=== PATIENT | male | born 1960 | race Caucasian/White ===

== ENCOUNTER 2022-02-24 14:46 | Emergency (ER) | payer BC, OTHER ==
[~2022-02-24] VITALS: Ht 187 cm; Wt 133.3 kg
[2022-02-24] MEDS ORDERED: morphine INJ 10 MG/ML 1ML (SYR OR VIAL) IVP STA ×2 (15:04→16:38)
[2022-02-24] MEDS ORDERED: ONDANSETRON 4 MG/2 ML (SDV) Z0FRAN IVP ONE (15:15)
[2022-02-24 15:56] LABS: BASOPHILS % (AUTO) 1 % (0-10); EOSINOPHILS # (AUTO) 0.2 10^3/uL (0.0-0.3); EOSINOPHILS % (AUTO) 4 % (0-10); HEMATOCRIT 25 % (40-54); HEMOGLOBIN 7.9 g/dL (13.3-17.7); LYMPHOCYTES # (AUTO) 0.3 X 10^3 (1.0-4.0); LYMPHOCYTES % (AUTO) 8 % (12-44); MEAN CORPUSCULAR HEMOGLOBIN 30 pg (25-34); MEAN CORPUSCULAR HGB CONC 32 g/dL (32-36); MEAN CORPUSCULAR VOLUME 92 fL (80-99); MEAN PLATELET VOLUME 11.8 fL (9.0-12.2); MONOCYTES # (AUTO) 0.5 X 10^3 (0.0-1.0); MONOCYTES % (AUTO) 12 % (0-12); NEUTROPHILS # (AUTO) 2.9 X 10^3 (1.8-7.8); NEUTROPHILS % (AUTO) 75 % (42-75); PLATELET COUNT 120 10^3/uL (130-400); WHITE BLOOD COUNT 3.8 10^3/uL (4.3-11.0)
--- NOTE | 2022-02-24 16:03 | ED Lower Extremity ---
General Chief Complaint: Lower Extremity Stated Complaint: KNEE PAIN Nursing Triage Note: PT PRESENTS TO ED VIA EMS FROM SCENE WITH COMPLAINTS OF FALL FROM STANDING POSITION WHEN HE LOST HIS BALANCE. PT REPORTS BILAT KNEE PAIN. PT HAS ABRASION TO R KNEE AND R ELBOW. SWELLING NOTED TO L SORIANO. Source: patient, EMS Exam Limitations: no limitations History of Present Illness Date Seen by Provider: Feb 24, 2022 Time Seen by Provider: 15:10 Initial Comments Patient is a 62-year-old male who presents to the emergency department by ambulance today chief complaint of fall from standing. Patient states that he was walking with a cane and he has had progressive trouble with his right knee since a knee replacement a little less than a year ago. He had his right knee replaced at [facility] in [place]. He states the leg just "gave out". He went down forcefully on both knees. He was unable to get up on his own. Complains of an abrasion to the right elbow, abrasion to the right knee and severe pain in the right knee with limited mobility. Unknown last tetanus shot. History of chronic back pain. Did not hit his head, no loss of consciousness. No headache, neck pain. No new back pain. No extremity weakness or paresthesias. All other review of systems reviewed and negative except as stated Onset: just prior to arrival Severity: severe Pain/Injury Location: right knee Method of Injury: fell Modifying Factors: Improves With Immobilization; Worse With Movement Allergies and Home Medications Allergies Coded Allergies: No Known Drug Allergies (Unverified , 02/24/22) Patient Home Medication List Home Medication List Reviewed: Yes Allopurinol (Allopurinol) 300 Mg Tablet, (Reported) Entered as Reported by: SAPNA LAMAR on 02/24/221624 Last Action: New Order Cholecalciferol (Vitamin D3) (Vitamin D3) 1,250 Mcg (42520 Unit) Capsule, (Reported) Entered as Reported by: SAPNA LAMAR on 02/24/221624 Last Action: New Order Diclofenac Sodium (Diclofenac Sodium) 1 % Gel..gram., (Reported) Entered as Reported by: SAPNA LAMAR on 02/24/221624 Last Action: New Order Doxycycline Hyclate (Doxycycline Hyclate) 100 Mg Tablet, (Reported) Entered as Reported by: SAPNA LAMAR on 02/24/221624 Last Action: New Order Hydrochlorothiazide (Hydrochlorothiazide) 25 Mg Tablet, (Reported) Entered as Reported by: SAPNA LAMAR on 02/24/221624 Last Action: New Order Meloxicam (Meloxicam) 7.5 Mg Tablet, (Reported) Entered as Reported by: SAPNA LAMAR on 02/24/221624 Last Action: New Order Pantoprazole Sodium (Pantoprazole Sodium) 40 Mg Tablet., (Reported) Entered as Reported by: SAPNA LAMAR on 02/24/221624 Last Action: New Order Potassium Chloride (Potassium Chloride) 20 Meq Tab.er.prt, (Reported) Entered as Reported by: SAPNA LAMAR on 02/24/221624 Last Action: New Order Review of Systems Constitutional: see HPI EENTM: no symptoms reported Respiratory: no symptoms reported Cardiovascular: no symptoms reported Gastrointestinal: no symptoms reported Genitourinary: no symptoms reported Musculoskeletal: back pain (chronic), joint pain (right knee) Skin: other (skin abrasions) All Other Systems Reviewed Negative Unless Noted: Yes Past Ymqumux-Shpydp-Typfam Hx Patient Social History Tobacco Use?: No Substance use?: No Alcohol Use?: Yes Alcohol Frequency: Couple times a week Pt feels they are or have been: No Past Medical History Surgery/Hospitalization HX: chronic back pain, chronic knee pain, Physical Exam Vital Signs Vital Signs - First Documented 02/24/22 14:54 Temp 36.2 Pulse 97 Resp 16 B/P (MAP) 124/86 (99) Pulse Ox 98 Capillary Refill : Less Than 3 Seconds Height, Weight, BMI Height: '" Weight: lbs. oz. kg; 38.00 BMI Method: General Appearance: WD/WN, mild distress HEENT: PERRL/EOMI Neck: non-tender, full range of motion, normal inspection Cardiovascular: regular rate, rhythm, other (distal pulses bilateral LE intact; normal sensation) Respiratory: lungs clear, normal breath sounds, no respiratory distress, no accessory muscle use Gastrointestinal: non tender, soft Hips: bilateral hip non-tender, bilateral hip normal range of motion, bilateral hip no evidence of injury; right hip limited range of motion Legs: right leg non-tender, right leg normal inspection, right leg normal range of motion, right leg no evidence of injury; left leg soft tissue tenderness (large amount of swelling left leg. anterior - no open wounds/abrasions; mildly tender) Knees: left knee non-tender, left knee normal inspection, left knee normal range of motion, left knee no evidence of injury; right knee bone tenderness, right knee deformity, right knee joint effusion, right knee pain, right knee soft tissue tenderness, right knee swelling Ankles: bilateral ankle non-tender, bilateral ankle normal inspection, bilateral ankle normal range of motion, bilateral ankle no evidence of injury Feet: bilateral foot non-tender, bilateral foot normal inspection, bilateral foot normal range of motion, bilateral foot no evidence of injury Neurologic/Tendon: normal sensation, normal motor functions Neurologic/Psychiatric: alert, normal mood/affect, oriented x 3 Skin: normal color, warm/dry, other (abrasin right elbow; abrasion right anterior knee - over the patellar tendon) Progress/Results/Core Measures Results/Orders Lab Results Laboratory Tests Test 02/24/22 15:47 Range/Units White Blood Count 3.8 L 4.3-11.0 10^3/uL Red Blood Count 2.68 L 4.30-5.52 10^6/uL Hemoglobin 7.9 L 13.3-17.7 g/dL Hematocrit 25 L 40-54 % Mean Corpuscular Volume 92 80-99 fL Mean Corpuscular Hemoglobin 30 25-34 pg Mean Corpuscular Hemoglobin Concent 32 32-36 g/dL Red Cell Distribution Width 15.2 H 10.0-14.5 % Platelet Count 120 L 130-400 10^3/uL Mean Platelet Volume 11.8 9.0-12.2 fL Immature Granulocyte % (Auto) 0 % Neutrophils (%) (Auto) 75 42-75 % Lymphocytes (%) (Auto) 8 L 12-44 % Monocytes (%) (Auto) 12 0-12 % Eosinophils (%) (Auto) 4 0-10 % Basophils (%) (Auto) 1 0-10 % Neutrophils # (Auto) 2.9 1.8-7.8 X 10^3 Lymphocytes # (Auto) 0.3 L 1.0-4.0 X 10^3 Monocytes # (Auto) 0.5 0.0-1.0 X 10^3 Eosinophils # (Auto) 0.2 0.0-0.3 10^3/uL Basophils # (Auto) 0.0 0.0-0.1 10^3/uL Immature Granulocyte # (Auto) 0.0 0.0-0.1 10^3/uL Sodium Level 139 135-145 MMOL/L Potassium Level 4.2 3.6-5.0 MMOL/L Chloride Level 110 H 98-107 MMOL/L Carbon Dioxide Level 18 L 21-32 MMOL/L Anion Gap 11 5-14 MMOL/L Blood Urea Nitrogen 17 7-18 MG/DL Creatinine 1.17 0.60-1.30 MG/DL Estimat Glomerular Filtration Rate 71 BUN/Creatinine Ratio 15 Glucose Level 203 H 70-105 MG/DL Calcium Level 7.9 L 8.5-10.1 MG/DL My Orders Orders - FRANCO HERNANDEZ MD Knee, Right, 3 Views (02/24/22 15:01) Morphine Injection (Morphine Injection (02/24/22 15:04) Ondansetron Injection (Zofran Injectio (02/24/22 15:15) Ed Iv/Invasive Line Start (02/24/22 15:23) Cbc With Automated Diff (02/24/22 15:23) Basic Metabolic Panel (02/24/22 15:23) Ekg Tracing (02/24/22 15:23) Chest 1 View, Ap/Pa Only (02/24/22 15:23) Femur, Right, 2 Views (02/24/22 15:23) Tibia/Fibula, Left, 2 Views (02/24/22 16:06) Dipht,Pertuss(Acell),Tet Adult (Boostrix (02/24/22 16:15) Morphine Injection (Morphine Injection (02/24/22 16:38) Medications Given in ED Vital Signs/I&O 02/24/22 02/24/22 14:54 16:59 Temp 36.2 Pulse 97 91 Resp 16 18 B/P (MAP) 124/86 (99) 118/53 Pulse Ox 98 97 Blood Pressure Mean: 99 Progress Progress Note : Time: 16:05 Progress Note Patient states he feels better after pain medicine. I have spoken with Dr. Hanna ([id number]) at the emergency department at [facility]. He put me in contact with Dr. Marion their orthopedic surgeon on-call. Dr. Marion has agreed to take care of the patient's distal femur fracture. We are going to splint him in a position of comfort for transport Initial ECG Impression Date: Feb 24, 2022 Initial ECG Impression Time: 15:45 Initial ECG Rate: 92 Initial ECG Rhythm: Normal Sinus Initial ECG Intervals: Normal Initial ECG Impression: Normal Diagnostic Imaging Diagonstic Imaging: Xray Comments [facility] [place], [place] NAME: EMILE AVILA MED REC#: [id number] PT STATUS: REG ER : 1960 PHYSICIAN: FRANCO HERNANDEZ MD ADMIT DATE: 02/24/22/ER Draft Date of Exam:02/24/22 KNEE, RIGHT, 3 VIEWS INDICATION: Fracture. COMPARISON: Prior examination from 02/24/2022. FINDINGS: There is a comminuted fracture of the distal right femoral diaphysis just above the knee arthroplasty. Fracture is angulated anteriorly. There appears to be a small radiopaque foreign body along the medial aspect of the right thigh. IMPRESSION: 1. Comminuted, angulated fracture of the distal right femoral diaphysis just proximal to the knee arthroplasty component. 2. Small radiopaque foreign body along the medial soft tissues of the right distal thigh. Dictated on workstation # [id number] Dict: 02/24/22 1615 Trans: 02/24/22 1618 [facility] [id number] Interpreted by: NICOLA MENA MD Electronically signed by: Diagonstic Imaging: Xray Plain Films/CT/US/NM/MRI: chest Comments [facility], [place] NAME: EMILE AVILA [facility] REC#: [id number] PT STATUS: REG ER : 1960 PHYSICIAN: FRANCO HERNANDEZ MD ADMIT DATE: 02/24/22/ER Draft Date of Exam:02/24/22 CHEST 1 VIEW, AP/PA ONLY INDICATION: Fall. FINDINGS: There are postsurgical changes in the lower thoracic spine. Heart size is normal. Lungs are clear. There is no pleural effusion or pneumothorax. The mediastinum is unremarkable. IMPRESSION: No acute cardiopulmonary abnormality. Dictated on workstation # [id number] Dict: 02/24/22 1613 Trans: 02/24/22 1615 [facility] [id number] Interpreted by: NICOLA MENA MD Electronically signed by: Comments [facility] [place], [place] NAME: EMILE AVILA MED REC#: [id number] PT STATUS: REG ER : 1960 PHYSICIAN: FRANCO HERNANDEZ MD ADMIT DATE: 02/24/22/ER Draft Date of Exam:02/24/22 FEMUR, RIGHT, 2 VIEWS INDICATION: Pain. FINDINGS: There is a comminuted fracture of the distal right femoral diaphysis just above the knee arthroplasty. There is some acute angulation anteriorly. Proximal femurs intact. IMPRESSION: Comminuted, angulated fracture of the distal right femoral diaphysis, as described. Dictated on workstation # [id number] Dict: 02/24/22 1614 Trans: 02/24/22 1616 [facility] [id number] Interpreted by: NICOLA MENA MD Electronically signed by: Departure Impression Primary Impression: Fracture, femur, distal Qualified Codes: S72.401A - Unspecified fracture of lower end of right femur, initial encounter for closed fracture Additional Impressions: Abrasion of skin of right elbow abrasion of skin of right knee Contusion of left lower leg Qualified Codes: S80.12XA - Contusion of left lower leg, initial encounter history of Osler ray Rendu Anemia Qualified Codes: D64.9 - Anemia, unspecified Disposition: 02 XFER SHT-TRM HOSP Condition: Stable Transfer Transfer Reason: Patient preference Time Spoke to Accepting Phy: 15:47 Transfer Progress Notes Discussed with Dr Hanna (ER) and Dr Miranda (Ortho) Transfer Facility: [place], [place] Method of Transfer: EMS FRANCO HERNANDEZ MD Feb 24, 2022 16:03
[2022-02-24 16:06] LABS: POTASSIUM 4.2 MMOL/L (3.6-5.0)
[2022-02-24 16:07] LABS: CALCIUM 7.9 MG/DL (8.5-10.1)
[2022-02-24 16:12] LABS: CREATININE SERUM 1.17 MG/DL (0.60-1.30)
[2022-02-24] MEDS ORDERED: TETANUS,DIPTH,PERTUSS P/F (BOOSTRIX) 0.5 ML VIAL IM ONE (16:15)
--- NOTE | 2022-02-24 16:16 | Diagnostic Imaging Report ---
INDICATION: Fall. FINDINGS: There are postsurgical changes in the lower thoracic spine. Heart size is normal. Lungs are clear. There is no pleural effusion or pneumothorax. The mediastinum is unremarkable. IMPRESSION: No acute cardiopulmonary abnormality. Dictated by: Dictated on workstation # [id number]
--- NOTE | 2022-02-24 16:17 | Diagnostic Imaging Report ---
INDICATION: Pain. FINDINGS: There is a comminuted fracture of the distal right femoral diaphysis just above the knee arthroplasty. There is some acute angulation anteriorly. Proximal femurs intact. IMPRESSION: Comminuted, angulated fracture of the distal right femoral diaphysis, as described. Dictated by: Dictated on workstation # [id number]
--- NOTE | 2022-02-24 16:18 | Diagnostic Imaging Report ---
INDICATION: Fracture. COMPARISON: Prior examination from 02/24/2022. FINDINGS: There is a comminuted fracture of the distal right femoral diaphysis just above the knee arthroplasty. Fracture is angulated anteriorly. There appears to be a small radiopaque foreign body along the medial aspect of the right thigh. IMPRESSION: 1. Comminuted, angulated fracture of the distal right femoral diaphysis just proximal to the knee arthroplasty component. 2. Small radiopaque foreign body along the medial soft tissues of the right distal thigh. Dictated by: Dictated on workstation # [id number]
[2022-02-24] MEDS ORDERED: POTA-179 (16:25)
[2022-02-24] MEDS ORDERED: ALLO300T2 (16:25)
[2022-02-24] MEDS ORDERED: HYDR25TA4 (16:25)
[2022-02-24] MEDS ORDERED: DICL100G13 (16:25)
[2022-02-24] MEDS ORDERED: DOXY100T2 (16:25)
[2022-02-24] MEDS ORDERED: MELO7.5T46 (16:25)
[2022-02-24] MEDS ORDERED: CHOL500049 (16:25)
[2022-02-24] MEDS ORDERED: PANT40TA52 (16:25)
--- NOTE | 2022-02-24 16:39 | Diagnostic Imaging Report ---
INDICATION: Left leg pain and swelling. EXAMINATION: Four views were obtained. FINDINGS: There are old fracture deformities of the mid left tibia and fibula. There are degenerative changes in both the knee and ankle. There is an oblique fracture through the proximal tibial diaphysis. This may extend into the tibial plateau. IMPRESSION: 1. Slightly displaced oblique fracture through the proximal tibial diaphysis with some extension through the posterior cortex and possibly into the knee joint, itself. Recommend clinical correlation and, if warranted, follow up with CT. 2. Marked degenerative changes in the ankle and knee. Dictated by: Dictated on workstation # [id number]
[2022-02-24 16:59] VITALS: BP 118/53
== END 2022-02-24 16:59 | disposition short-term general hospital (02) ==
LOC: EDUNIT# 14:46 → ER 14:49
DX: S72.401A Unspecified fracture of lower end of right femur, initial encounter for closed fracture (principal); S80.01XA Contusion of right knee, initial encounter; S50.311A Abrasion of right elbow, initial encounter; D64.9 Anemia, unspecified; I78.0 Hereditary hemorrhagic telangiectasia; W18.30XA Fall on same level, unspecified, initial encounter; Y93.01 Activity, walking, marching and hiking
CPT/HCPCS: 29505; 36415; 71045; 73552; 73562; 73590; 80048; 85025; 90715; 93005